=== PATIENT | female | born 1940 | race Caucasian/White ===

== ENCOUNTER 2017-03-04 08:15 | Day surgery (SDC) | payer MEDICARE, BC ==
[~2017-03-04] VITALS: Ht 149.9 cm; Wt 65.8 kg
--- NOTE | ~2017-03-04 | EGD ---
EGD REPORT [facility] [address] [place] [address] NAME: YANI HOLCOMB : 36 [place] [facility] [place] [id number] AGE: 76 ADM/REG DATE : 03/04/17 MR#: [id number] REPORT SERV DATE: 03/04/17 DICTATED BY: TISHA REED DATE: 03/04/17 REPORT STATUS : Draft TRANSCRIBED BY: [facility] DATE: 03/04/17 [facility] Patient Name: Yani Holcomb Date of : 1940 Attending MD: TISHA REED MD Procedure Date No Time: 03/04/2017 Procedure: Colonoscopy Indications: Surveillance: Personal history of adenomatous polyps on last colonoscopy 3 years ago, FH of Colonic Polyps - 1st degree relative Referring MD: ANGLE GUNDERSON Medicines: Propofol per Anesthesia Complications: No immediate complications. Procedure: Pre-Anesthesia Assessment: - ASA Grade Assessment: III - A patient with severe systemic disease. After I obtained informed consent, the scope was passed under direct vision. Throughout the procedure, the patient's blood pressure, pulse, and oxygen saturations were monitored continuously. The [id number] was introduced through the anus and advanced to the terminal ileum. The colonoscopy was performed without difficulty. The patient tolerated the procedure well. The quality of the bowel preparation was good. The appendiceal orifice, terminal ileum and rectum were photographed. Findings: The perianal and digital rectal examinations were normal. The terminal ileum appeared normal. The colon (entire examined portion) appeared normal. Multiple small and large-mouthed diverticula were found in the recto-sigmoid colon, in the sigmoid colon, in the descending colon, in the transverse colon and in the ascending colon. Non-bleeding internal hemorrhoids were found during retroflexion and were mild, small and Grade I (internal hemorrhoids that do not prolapse). Impression: - The examined portion of the ileum was normal. - The entire examined colon is normal. - Diverticulosis in the recto-sigmoid colon, in the sigmoid colon, in the descending colon, in the transverse colon and in the ascending colon. - Non-bleeding internal hemorrhoids. Recommendation: - Patient has a contact number available for emergencies. The signs and symptoms of potential delayed EGD REPORT [address] [address] NAME: YANI HOLCOMB : 36 [place] [facility] [place] [id number] AGE: 76 ADM/REG DATE : 03/04/17 MR#: [id number] REPORT SERV DATE: 03/04/17 DICTATED BY: TISHA REED DATE: 03/04/17 REPORT STATUS : Draft TRANSCRIBED BY: [employer] [employer] DATE: 03/04/17 complications were discussed with the patient. Return to normal activities tomorrow. Written discharge instructions were provided to the patient. - Return to previous diet. - Continue present medications. - Repeat colonoscopy in 5 years for surveillance. - Return to my office as previously scheduled. - Discharge patient to home. Procedure Code(s): --- Professional --- G0105, Colorectal cancer screening; colonoscopy on individual at high risk Diagnosis Code(s): --- Professional --- K64.0, First degree hemorrhoids K57.30, Diverticulosis of large intestine without perforation or abscess without bleeding Z86.010, Personal history of colonic polyps Z83.71, Family history of colonic polyps CPT copyright 2013 [employer]. All rights reserved. The codes documented in this report are preliminary and upon checkroom chief review may be revised to meet current compliance requirements. Tisha Reed MD TISHA REED MD 03/04/2017 12:30 PM This report has been signed electronically. Number of Addenda: 0 Note Initiated On: 03/04/2017 11:25 AM [id number]
[~2017-03-04 08:15] MED LIST: ADVAIR INH; ATV.5 PO; CLARIT10 PO; DETROL1 PO; FLONASE NAS; HALF81 PO; IVVIBRA PO; KEPPRA500 PO; LINZESS 290 M290 MCG PO; MAGOX4 PO; MIRALAXPKT PO; NEXIUM40 PO; P20 PO; PRAVACHOL40 MG PO; PROAIR HFA INH; PROVENTSOL INH; SANCTURA20 MG PO; SINGULAIR1 PO; SYN88 PO; VISINE TEARS15 ML OPH; VITAMIN D1000 UNI1 PO
== END 2017-03-04 23:59 | disposition home or self-care (01) ==
LOC: DMU 08:15
PROVIDERS: Internal Medicine Gastroenterology
PROC: 0DJD8ZZ Inspection of Lower Intestinal Tract, Via Natural or Artificial Opening Endoscopic (ICD-10-PCS; principal; 2017-03-04 09:00)
DX: Z12.11 Encounter for screening for malignant neoplasm of colon (principal); K57.30 Diverticulosis of large intestine without perforation or abscess without bleeding; K64.0 First degree hemorrhoids; J45.909 Unspecified asthma, uncomplicated; K21.9 Gastro-esophageal reflux disease without esophagitis; E03.9 Hypothyroidism, unspecified; F41.9 Anxiety disorder, unspecified; F32.9 Major depressive disorder, single episode, unspecified; Z79.82 Long term (current) use of aspirin; Z86.010 Personal history of colon polyps; Z83.71 Family history of colonic polyps; Z79.899 Other long term (current) drug therapy; Z88.5 Allergy status to narcotic agent; Z88.6 Allergy status to analgesic agent; Z88.1 Allergy status to other antibiotic agents; Z88.8 Allergy status to other drugs, medicaments and biological substances; Z87.891 Personal history of nicotine dependence; Z90.710 Acquired absence of both cervix and uterus; Z90.49 Acquired absence of other specified parts of digestive tract; Z96.651 Presence of right artificial knee joint; Z98.41 Cataract extraction status, right eye; Z98.42 Cataract extraction status, left eye; Z96.1 Presence of intraocular lens; Z98.890 Other specified postprocedural states